=== PATIENT | male | born 1980 | race Caucasian/White ===

== ENCOUNTER → 2020-11-27 | Outpatient (REF) | payer OTHER | LOC: M LAB REF 18:18 | PROVIDERS: ATTEND Physician Assistant | DX: J06.9 Acute upper respiratory infection, unspecified (principal) ==

== ENCOUNTER → 2023-02-03 | Outpatient (CLI) | payer BC | LOC: M SLEEP HO 10:57 | PROVIDERS: ATTEND Physician Assistant | DX: R06.83 Snoring (principal) ==

== ENCOUNTER → 2024-04-05 | Day surgery (SDC) | payer BC ==
[~2024-04-05] VITALS: Ht 188 cm; Wt 93.0 kg
[~2024-04-05] MED LIST: ERGO500029 PO; LIDOCAINE 2% 100MG/5ML SDV (FOR ANES.) As Ordered ONE; fentaNYL 100 MCG/2 ML INJECTION As Ordered ONE; propofoL 200 MG/20 ML VIAL As Ordered ONE
[2024-04-05] MEDS: NS 1,000 ML IV ONE (07:17)
[2024-04-05 08:09] VITALS: TEMP 97.7; O2SAT 97
[2024-04-05 08:25] VITALS: BP 112/74
== END | disposition home or self-care (01) ==
LOC: M OPP 06:30
PROVIDERS: ATTEND Surgery
DX: Z12.11 Encounter for screening for malignant neoplasm of colon (principal); Z80.0 Family history of malignant neoplasm of digestive organs; K63.5 Polyp of colon; K57.30 Diverticulosis of large intestine without perforation or abscess without bleeding; K30 Functional dyspepsia; K29.70 Gastritis, unspecified, without bleeding; K22.89 Other specified disease of esophagus; K44.9 Diaphragmatic hernia without obstruction or gangrene
CPT/HCPCS: 43239; 45380; 88305; J3010

== ENCOUNTER → 2025-06-29 | Outpatient (CLI) | payer BC ==
[~2025-06-29] MED LIST changes: -LIDOCAINE 2% 100MG/5ML SDV (FOR ANES.) As Ordered ONE; -fentaNYL 100 MCG/2 ML INJECTION As Ordered ONE; -propofoL 200 MG/20 ML VIAL As Ordered ONE
[2025-06-29 07:22] LABS: BASO # 0.1 10^3/uL (0.0-0.2); BASO % 0.9 % (0.0-1.0); EOS # 0.4 10^3/uL (0.0-0.5); EOS % 7.4 % (0.0-3.0); LYMPH # 1.1 10^3/uL (1.5-5.0); LYMPH % 19.7 % (24.0-44.0); MONO # 0.6 10^3/uL (0.0-0.8); MONO % 10.4 % (2.0-8.0); NEUTROPHILS # 3.5 10^3/uL (1.5-8.5); NEUTROPHILS % 61.1 % (36.0-66.0); PLATELET COUNT, AUTOMATED 232 10^3/uL (150-450)
[2025-06-29 07:56] LABS: ALT/SGPT 41 U/L (7.0-40); AST/SGOT 16 U/L (<34); CALCIUM LEVEL 8.7 MG/DL (8.5-10.1); CARBON DIOXIDE LEVEL 29 MMOL/L (20-31); CHLORIDE LEVEL 105 MMOL/L (98-107); CREATININE FOR GFR 0.84 MG/DL (0.70-1.30); GLOMERULAR FILTRATION RATE > 90.0 (>60); IRON (FE) 69 UG/DL (65-175); PERCENT SATURATION 22.8 % (19.7-50.0); POTASSIUM SERUM 4.3 MMOL/L (3.5-5.1); SODIUM LEVEL 141 MMOL/L (136-145)
[2025-06-29 08:04] LABS: TOTAL 25(OH) VITAMIN D 35.8 NG/ML (20.0-100.0)
[2025-06-29 08:05] LABS: FREE T4 1.31 NG/DL (0.89-1.76); VITAMIN B12 LEVEL 741 PG/ML (211-911)
== END ==
LOC: M LAB 06:24
PROVIDERS: ATTEND Physician Assistant
DX: R53.83 Other fatigue (principal); Z84.81 Family history of carrier of genetic disease